=== PATIENT | female | born 1945 | race Hispanic/Latino ===

== ENCOUNTER → 2018-01-29 | Outpatient (CLI) | payer MEDICARE ==
[~2018-01-29] MED LIST: ALEN70TA47 PO; DULO60CA44 PO; GLIP10TA9 PO; LISI40TA4 PO; OXYQ1POW MC; PREG100C PO; SIMV10TA6 PO; TRAM50TA4 PO
== END | disposition home or self-care (01) ==
LOC: RAH 08:40
PROVIDERS: ATTEND Family Medicine
DX: Z12.31 Encounter for screening mammogram for malignant neoplasm of breast (principal)
CPT/HCPCS: 77067